=== PATIENT | female | born 1965 | race American Indian/Alaskan Native ===

== ENCOUNTER 2016-12-17 22:20 | Emergency (ER) | payer BC ==
[2016-12-18] MEDS: MOTRIN PO ONE (02:37)
[2016-12-18] MEDS: DUONEB 0.5 MG-3 MG/3 ML SOLN IH ONE (03:08)
--- NOTE | 2016-12-18 03:40 | Emergency Department Report ---
- General Chief Complaint: Upper Respiratory Infection Stated Complaint: CHEST PAIN, COUGH Time Seen by Provider: 12/18/16 02:02 Source: patient Mode of arrival: Ambulatory Limitations: No Limitations - History of Present Illness Initial Comments: 51-year-old female past medical history arthritis and epilepsy presents with complaint of 6 days of sore throat subjective fever chills cough with mild yellowish sputum. 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 Recent exposure to multiple patients with URIs and pneumonia. Patient is awake alert and oriented 3 no signs of respiratory distres sstridor no wheezing on clinical exam. Primarily complaining of cough and body aches and subjective fever chills. Also complains of mild sore throat. Denies smoking MD Complaint: cough, sore throat, rhinorrhea, nasal congestion Onset/Timin -: days(s) Severity: moderate Improves With: OTC cold medicine Context: sick contacts Associated Symptoms: fever, chills, cough - Related Data Home Medications Medication Instructions Recorded Confirmed Last Taken Omeprazole [PriLOSEC] 20 mg PO DAILY 09/22/13 12/21/14 1 Day Ago carBAMazepine [Tegretol] 400 mg PO BID 09/22/13 12/21/14 1 Day Ago valACYclovir [Valtrex] 500 mg PO DAILY 09/22/13 12/21/14 1 Day Ago Previous Rx's Medication Instructions Recorded Last Taken Type Clindamycin [Clindamycin CAP] 300 mg PO Q6H #40 capsule 12/21/14 Unknown Rx HYDROcodone/APAP 5-325 [Felicity 1 each PO Q6HR PRN #12 tablet 12/21/14 Unknown Rx 5/325] Ondansetron [Zofran] 8 mg PO Q8HR PRN #12 tablet 12/21/14 Unknown Rx Amoxicillin [Trimox CAP] 500 mg PO Q8H #30 capsule 04/12/15 Unknown Rx HYDROcodone/APAP 10-325 [Felicity 1 each PO Q4-6H PRN #20 tablet 04/12/15 Unknown Rx 10/325] Amoxicillin/K Clav Tab [Augmentin 1 each PO Q12HR #20 tablet 07/12/15 Unknown Rx 500 MG TAB] Fluticasone [Flonase] 1 spray NS QDAY #1 bottle 07/12/15 Unknown Rx guaiFENesin/CODEINE [Robitussin AC] 10 ml PO QHS PRN #70 ml 07/12/15 Unknown Rx predniSONE [Deltasone] 20 mg PO QDAY #6 tab 07/12/15 Unknown Rx Ibuprofen [Motrin 800 MG tab] 800 mg PO Q8H PRN #30 tablet 03/01/16 Unknown Rx traMADol [Ultram] 50 mg PO Q6HR PRN #20 tablet 03/01/16 Unknown Rx Azithromycin [Zithromax Z-DIMA] 250 mg PO QDAY #6 tablet 12/18/16 Unknown Rx Naproxen [Naproxen TAB] 250 mg PO BID PRN #25 tablet 12/18/16 Unknown Rx Phenylephrine/Dm/Acetaminop/GG 266 ml PO Q4H PRN #1 liquid 12/18/16 Unknown Rx [Mucinex Vrey-Kuw-Epqhihmwtw Lq] Allergies Allergy/AdvReac Type Severity Reaction Status Date / Time sulfamethoxazole AdvReac Itching Verified 07/12/15 17:18 [From Bactrim] trimethoprim [From Bactrim] AdvReac Itching Verified 07/12/15 17:18 ED Review of Systems ROS: Stated complaint: CHEST PAIN, COUGH Other details as noted in HPI Constitutional: denies: chills, fever Eyes: denies: eye pain, eye discharge, vision change ENT: denies: ear pain, throat pain Respiratory: cough. denies: shortness of breath, wheezing Cardiovascular: denies: chest pain, palpitations Endocrine: no symptoms reported Gastrointestinal: denies: abdominal pain, nausea, diarrhea Genitourinary: denies: urgency, dysuria, discharge Musculoskeletal: denies: back pain, joint swelling, arthralgia Skin: denies: rash, lesions Neurological: denies: headache, weakness, paresthesias Psychiatric: denies: anxiety, depression Hematological/Lymphatic: denies: easy bleeding, easy bruising ED Past Medical Hx - Past Medical History Hx Arthritis: Yes Hx Seizures: Yes (epilepsy) Additional medical history: herpes - Surgical History Additional Surgical History: bilateral knee replacement - Social History Smoking Status: Never Smoker Substance Use Type: None - Medications Home Medications: Home Medications Medication Instructions Recorded Confirmed Last Taken Type Omeprazole [PriLOSEC] 20 mg PO DAILY 09/22/13 12/21/14 1 Day Ago History carBAMazepine [Tegretol] 400 mg PO BID 09/22/13 12/21/14 1 Day Ago History valACYclovir [Valtrex] 500 mg PO DAILY 09/22/13 12/21/14 1 Day Ago History Clindamycin [Clindamycin CAP] 300 mg PO Q6H #40 capsule 12/21/14 Unknown Rx HYDROcodone/APAP 5-325 [Felicity 1 each PO Q6HR PRN #12 tablet 12/21/14 Unknown Rx 5/325] Ondansetron [Zofran] 8 mg PO Q8HR PRN #12 tablet 12/21/14 Unknown Rx Amoxicillin [Trimox CAP] 500 mg PO Q8H #30 capsule 04/12/15 Unknown Rx HYDROcodone/APAP 10-325 [Felicity 1 each PO Q4-6H PRN #20 tablet 04/12/15 Unknown Rx 10/325] Amoxicillin/K Clav Tab [Augmentin 1 each PO Q12HR #20 tablet 07/12/15 Unknown Rx 500 MG TAB] Fluticasone [Flonase] 1 spray NS QDAY #1 bottle 07/12/15 Unknown Rx guaiFENesin/CODEINE [Robitussin AC] 10 ml PO QHS PRN #70 ml 07/12/15 Unknown Rx predniSONE [Deltasone] 20 mg PO QDAY #6 tab 07/12/15 Unknown Rx Ibuprofen [Motrin 800 MG tab] 800 mg PO Q8H PRN #30 tablet 03/01/16 Unknown Rx traMADol [Ultram] 50 mg PO Q6HR PRN #20 tablet 03/01/16 Unknown Rx Azithromycin [Zithromax Z-DIMA] 250 mg PO QDAY #6 tablet 12/18/16 Unknown Rx Naproxen [Naproxen TAB] 250 mg PO BID PRN #25 tablet 12/18/16 Unknown Rx Phenylephrine/Dm/Acetaminop/GG 266 ml PO Q4H PRN #1 liquid 12/18/16 Unknown Rx [Mucinex Ilmq-Wpq-Ekpwhnqlev Lq] ED Physical Exam - General Limitations: No Limitations General appearance: alert, in no apparent distress - Head Head exam: Present: atraumatic, normocephalic - Eye Eye exam: Present: normal appearance, PERRL, EOMI - ENT ENT exam: Present: mucous membranes moist - Neck Neck exam: Present: normal inspection, full ROM - Respiratory Respiratory exam: Present: normal lung sounds bilaterally. Absent: respiratory distress - Cardiovascular Cardiovascular Exam: Present: regular rate, normal rhythm. Absent: systolic murmur, diastolic murmur, rubs, gallop - GI/Abdominal GI/Abdominal exam: Present: soft, normal bowel sounds - Extremities Exam Extremities exam: Present: normal inspection - Back Exam Back exam: Present: normal inspection - Neurological Exam Neurological exam: Present: alert, oriented X3 - Psychiatric Psychiatric exam: Present: normal affect, normal mood - Skin Skin exam: Present: warm, dry, intact, normal color. Absent: rash ED Course Vital Signs 12/17/16 12/18/16 12/18/16 22:38 02:37 03:10 Temperature 98.3 F Pulse Rate 90 Pulse Rate [ 88 Posterior Bilateral Throughout] Respiratory 18 20 Rate Respiratory 18 Rate [Posterior Bilateral Throughout] Blood Pressure 139/73 Blood Pressure 139/73 [Left] O2 Sat by Pulse 100 Oximetry 12/18/16 03:16 Temperature Pulse Rate Pulse Rate [ 90 Posterior Bilateral Throughout] Respiratory Rate Respiratory 18 Rate [Posterior Bilateral Throughout] Blood Pressure Blood Pressure [Left] O2 Sat by Pulse Oximetry ED Medical Decision Making - Medical Decision Making A/P: Acute bronchitis 1-Z-Dima, Motrin, Mucinex 2-follow-up with primary care doctor 3-strep and flu swab negative Critical care attestation.: If time is entered above; I have spent that time in minutes in the direct care of this critically ill patient, excluding procedure time. ED Disposition Clinical Impression: Acute bronchitis Qualifiers: Bronchitis organism: unspecified organism Qualified Code(s): J20.9 - Acute bronchitis, unspecified Disposition: DISCHARGED TO HOME OR SELFCARE Is pt being admited?: No Does the pt Need Aspirin: No Condition: Stable Instructions: Acute Bronchitis (ED) Prescriptions: Azithromycin [Zithromax Z-DIMA] 250 mg PO QDAY #6 tablet Naproxen [Naproxen TAB] 250 mg PO BID PRN #25 tablet PRN Reason: Fever Phenylephrine/Dm/Acetaminop/GG [Mucinex Sxpa-Sse-Wvaucsgfet Lq] 266 ml PO Q4H PRN #1 liquid PRN Reason: Cough Referrals: ERINN CONWAY MD [Staff Physician] - 3-5 Days Forms: Work/School Release Form(ED) Time of Disposition: 03:42
[2016-12-18 04:02] VITALS: BP 138/78
== END 2016-12-18 04:03 | disposition home or self-care (01) ==
LOC: ED 22:20
DX: J20.9 Acute bronchitis, unspecified (principal)
CPT/HCPCS: 87116; 87400; 87430; 93005; 93010; 94640; 99283

== ENCOUNTER 2018-05-29 09:40 | Emergency (ER) | payer BC ==
[2018-05-29 10:44] LABS: HCG Qualitative,Urine Negative (Negative)
[2018-05-29] MEDS ORDERED: TORADOL IM ONE (11:19)
--- NOTE | 2018-05-29 11:19 | Emergency Department Report ---
ED Neck Pain/Injury HPI - General Chief Complaint: Neck Pain/Injury Stated Complaint: NECK PAIN Time Seen by Provider: 05/29/18 10:57 Source: patient Mode of arrival: Ambulatory Limitations: No Limitations - History of Present Illness Initial Comments: This is a 52-year-old female hair place that she has neck pain and stiffness that started in her left shoulder and now has pain in her neck and shoulders and upper back. She denies any trauma. Denies any numbness or tingling to extremities. She said it started 3 days ago. Denies any fever or chills. Denies any cough, cold, chest pain, headache, dizziness, nausea or vomiting. Denies any shortness of breath. Pain 8/10 and achy. She says she took over-the -counter medication but it is not working. Pain is worse with movement and better with rest . Denies any injury MD Complaint: neck pain Onset/Timin -: days(s) Place: home Radiation: right shoulder, left shoulder, upper back Severity: severe, constant Severity scale (0 -10): 8 Quality: aching Consistency: constant Improves With: none Worsens With: movement of neck Context: unknown Associated Symptoms: denies: headache, fever, numbness, tingling, weakness, vertigo, difficulty walking, swollen glands, difficulty swallowing, nausea, vomiting Treatments Prior to Arrival: Ibuprofen - Related Data Home Medications Medication Instructions Recorded Confirmed Last Taken Omeprazole [PriLOSEC] 20 mg PO DAILY 09/22/13 12/21/14 1 Day Ago ~12/20/14 carBAMazepine [Tegretol] 400 mg PO BID 09/22/13 12/21/14 1 Day Ago ~12/20/14 valACYclovir [Valtrex] 500 mg PO DAILY 09/22/13 12/21/14 1 Day Ago ~12/20/14 Previous Rx's Medication Instructions Recorded Last Taken Type Clindamycin [Clindamycin CAP] 300 mg PO Q6H #40 capsule 12/21/14 Unknown Rx HYDROcodone/APAP 5-325 [[place] 1 each PO Q6HR PRN #12 tablet 12/21/14 Unknown Rx 5/325] Ondansetron (Nf) [Zofran] 8 mg PO Q8HR PRN #12 tablet 12/21/14 Unknown Rx Amoxicillin [Trimox CAP] 500 mg PO Q8H #30 capsule 04/12/15 Unknown Rx HYDROcodone/APAP 10-325 [[place] 1 each PO Q4-6H PRN #20 tablet 04/12/15 Unknown Rx 10/325] Amoxicillin/K Clav Tab [Augmentin 1 each PO Q12HR #20 tablet 07/12/15 Unknown Rx 500 MG TAB] Fluticasone [Flonase] 1 spray NS QDAY #1 bottle 07/12/15 Unknown Rx guaiFENesin/CODEINE [Robitussin AC] 10 ml PO QHS PRN #70 ml 07/12/15 Unknown Rx predniSONE [Deltasone] 20 mg PO QDAY #6 tab 07/12/15 Unknown Rx Ibuprofen [Motrin 800 MG tab] 800 mg PO Q8H PRN #30 tablet 03/01/16 Unknown Rx traMADol [Ultram] 50 mg PO Q6HR PRN #20 tablet 03/01/16 Unknown Rx Azithromycin [Zithromax Z-DIMA] 250 mg PO QDAY #6 tablet 12/18/16 Unknown Rx Naproxen [Naproxen TAB] 250 mg PO BID PRN #25 tablet 12/18/16 Unknown Rx Phenylephrine/Dm/Acetaminop/GG 266 ml PO Q4H PRN #1 liquid 12/18/16 Unknown Rx [Mucinex Hpcu-Zsc-Hxoqixovhn Lq] Cyclobenzaprine [Flexeril 10mg] 10 mg PO Q12H PRN #14 tablet 05/29/18 Unknown Rx Ibuprofen [Motrin] 600 mg PO Q8H PRN #12 tablet 05/29/18 Unknown Rx Allergies Allergy/AdvReac Type Severity Reaction Status Date / Time sulfamethoxazole AdvReac Itching Verified 07/12/15 17:18 [From Bactrim] trimethoprim [From Bactrim] AdvReac Itching Verified 07/12/15 17:18 ED Review of Systems ROS: Stated complaint: NECK PAIN Other details as noted in HPI Constitutional: denies: chills, fever Eyes: denies: eye pain, eye discharge, vision change ENT: denies: ear pain, throat pain, congestion Respiratory: denies: cough, shortness of breath, SOB with exertion, SOB at rest , wheezing Cardiovascular: denies: chest pain, palpitations, edema, syncope Gastrointestinal: denies: abdominal pain, nausea, diarrhea Genitourinary: denies: urgency, dysuria, discharge Musculoskeletal: arthralgia. denies: back pain, joint swelling Skin: denies: rash, lesions Neurological: denies: headache, weakness, numbness, paresthesias, confusion, abnormal gait, vertigo ED Past Medical Hx - Past Medical History Previous Medical History?: Yes Hx Arthritis: Yes Hx Seizures: Yes (epilepsy) Additional medical history: herpes - Surgical History Past Surgical History?: Yes Additional Surgical History: bilateral knee replacement - Family History Family history: hypertension - Social History Smoking Status: Never Smoker Substance Use Type: None - Medications Home Medications: Home Medications Medication Instructions Recorded Confirmed Last Taken Type Omeprazole [PriLOSEC] 20 mg PO DAILY 09/22/13 12/21/14 1 Day Ago History ~12/20/14 carBAMazepine [Tegretol] 400 mg PO BID 09/22/13 12/21/14 1 Day Ago History ~12/20/14 valACYclovir [Valtrex] 500 mg PO DAILY 09/22/13 12/21/14 1 Day Ago History ~12/20/14 Clindamycin [Clindamycin CAP] 300 mg PO Q6H #40 capsule 12/21/14 Unknown Rx HYDROcodone/APAP 5-325 [[place] 1 each PO Q6HR PRN #12 tablet 12/21/14 Unknown Rx 5/325] Ondansetron (Nf) [Zofran] 8 mg PO Q8HR PRN #12 tablet 12/21/14 Unknown Rx Amoxicillin [Trimox CAP] 500 mg PO Q8H #30 capsule 04/12/15 Unknown Rx HYDROcodone/APAP 10-325 [[place] 1 each PO Q4-6H PRN #20 tablet 04/12/15 Unknown Rx 10/325] Amoxicillin/K Clav Tab [Augmentin 1 each PO Q12HR #20 tablet 07/12/15 Unknown Rx 500 MG TAB] Fluticasone [Flonase] 1 spray NS QDAY #1 bottle 07/12/15 Unknown Rx guaiFENesin/CODEINE [Robitussin AC] 10 ml PO QHS PRN #70 ml 07/12/15 Unknown Rx predniSONE [Deltasone] 20 mg PO QDAY #6 tab 07/12/15 Unknown Rx Ibuprofen [Motrin 800 MG tab] 800 mg PO Q8H PRN #30 tablet 03/01/16 Unknown Rx traMADol [Ultram] 50 mg PO Q6HR PRN #20 tablet 03/01/16 Unknown Rx Azithromycin [Zithromax Z-DIMA] 250 mg PO QDAY #6 tablet 12/18/16 Unknown Rx Naproxen [Naproxen TAB] 250 mg PO BID PRN #25 tablet 12/18/16 Unknown Rx Phenylephrine/Dm/Acetaminop/GG 266 ml PO Q4H PRN #1 liquid 12/18/16 Unknown Rx [Mucinex Wfsn-Jcx-Iziwcouxoy Lq] Cyclobenzaprine [Flexeril 10mg] 10 mg PO Q12H PRN #14 tablet 05/29/18 Unknown Rx Ibuprofen [Motrin] 600 mg PO Q8H PRN #12 tablet 05/29/18 Unknown Rx ED Physical Exam - General Limitations: No Limitations General appearance: alert, in no apparent distress - Head Head exam: Present: atraumatic, normocephalic, normal inspection, other (normal exam) - Eye Eye exam: Present: normal appearance, PERRL, EOMI. Absent: nystagmus, periorbital swelling, periorbital tenderness Pupils: Present: normal accommodation - ENT ENT exam: Present: normal exam, normal orophraynx, mucous membranes moist, TM's normal bilaterally, normal external ear exam - Neck Neck exam: Present: normal inspection, full ROM, other (positive C-spine tenderness but patient does have pain with rotating her head from left to right and both sides neck. Pain is worse with extension of neck.). Absent: tenderness, lymphadenopathy - Respiratory Respiratory exam: Present: normal lung sounds bilaterally. Absent: respiratory distress, chest wall tenderness - Cardiovascular Cardiovascular Exam: Present: regular rate, normal rhythm, normal heart sounds. Absent: systolic murmur, diastolic murmur - Extremities Exam Extremities exam: Present: normal inspection, full ROM, normal capillary refill , other. Absent: tenderness, pedal edema, joint swelling, calf tenderness - Back Exam Back exam: Present: normal inspection, full ROM, other (embolus without any difficulties). Absent: tenderness, CVA tenderness (R), CVA tenderness (L), muscle spasm, paraspinal tenderness, vertebral tenderness, rash noted - Neurological Exam Neurological exam: Present: alert, oriented X3, normal gait, reflexes normal, other (no focal neurological deficit). Absent: motor sensory deficit - Psychiatric Psychiatric exam: Present: normal affect, normal mood - Skin Skin exam: Present: warm, dry, intact, normal color. Absent: rash ED Course Vital Signs 05/29/18 05/29/18 05/29/18 09:58 11:32 13:44 Temperature 97.9 F Pulse Rate 76 71 Respiratory 16 18 18 Rate Blood Pressure 131/71 Blood Pressure 130/70 [Left] O2 Sat by Pulse 100 100 Oximetry - Reevaluation(s) Reevaluation #1: 05/29/18 13:12 Patient given Toradol 60 mg IM for neck pain. Positive relief. ED Medical Decision Making - Radiology Data Radiology results: report reviewed CT scan C-spine dictated by radiologist and report reviewed by myself. Please see detailed report below. Findings [place] [id number] Cat Scan Report Signed Patient: EDWARD GUSMAN MR#: [id number] : 1965 Acct:[id number] Age/Sex: 52 / F ADM Date: 05/29/18 Loc: ED Attending Dr: Ordering Physician: MARTHA OLMSTEAD Date of Service: 05/29/18 Procedure(s): CT cervical spine wo con Accession Number(s): [id number] cc: MARTHA OLMSTEAD FINAL REPORT EXAM: CT CERVICAL SPINE WO CON HISTORY: neck pain and stiffness /cspine tenderness TECHNIQUE: CT examination of the cervical spine without IV contrast PRIORS: None. FINDINGS: Prevertebral soft tissues are without swelling. No evidence of cervical fracture or vertebral compression. Multilevel degenerative changes are present at the vertebral endplates, facet joints, and uncinate joints. Anterolisthesis: None. Retrolisthesis: None. Disc narrowing: C2-3 slight, C4-5 moderate to severe, C5-6 severe, C7-T1 slight to moderate Vertebral endplate, uncinate, and facet degenerative hypertrophic change is associated with osseous neural foraminal stenosis: Right neural foraminal stenosis: C5-6 slight Left neural foraminal stenosis: C5-6 slight IMPRESSION: No acute skeletal pathology in the cervical spine Multilevel degenerative change and disc narrowing. Slight C5-6 neural foraminal stenosis Transcribed By: BAL Dictated By: ORLANDO KAUR MD Electronically Authenticated By: ORLANDO KAUR MD Signed Date/Time: 05/29/181238 DD/ 38 TD/TT: 05/29/181238 - Medical Decision Making This is a 52-year-old female here report that she is having neck pain that started 3 days ago and is radiating to her shoulders and her upper back. Denies any injury. She denies any history of neck injury or arthritis in her neck. Diagnostics: CT scan C-spine reveals degenerative disc disease with some stenosis. Refers to radiology section for details. Urinalysis negative for Assessment/plan Neck pain-patient with degenerative disc disease C-spine with mild stenosis- better with Toradol 60 mg IM 1 and will be sent home on Flexeril and Ultram and referred to orthopedic doctor Cervical radiculopathy to bilateral upper extremity.-Better with Toradol Patient stable throughout ED course. Vital signs stable she is afebrile. Pain is better. I discussed with her her CT scan results and treatment plan and that she needs to follow up with orthopedic doctor for further evaluation and treatment and she voiced understanding patient discharged home in stable condition with prescription for Motrin and Flexeril. - Differential Diagnosis FX, subluxation, degenerative disc disease, strain Critical care attestation.: If time is entered above; I have spent that time in minutes in the direct care of this critically ill patient, excluding procedure time. ED Disposition Clinical Impression: Cervical radiculopathy, Cervical spinal stenosis, Degenerative disc disease, cervical Disposition: DC-01 TO HOME OR SELFCARE Is pt being admited?: No Does the pt Need Aspirin: No Condition: Stable Instructions: Cervical Spinal Stenosis (ED), Cervical Radiculopathy (ED), Degenerative Disc Disease (ED) Additional Instructions: Please follow-up with your primary care doctor and orthopedic doctor in 2-3 days. Flexeril and Motrin but please do not drive or operate heavy machinery while taking Flexeril as this medication causes drowsiness If he experienced increase numbness or tingling to extremity, return to emergency room but keep appointment with orthopedic doctor. Prescriptions: Cyclobenzaprine [Flexeril 10mg] 10 mg PO Q12H PRN #14 tablet PRN Reason: Spasms Ibuprofen [Motrin] 600 mg PO Q8H PRN #12 tablet PRN Reason: Pain Referrals: LEVY SADLER [Other] - 2-3 Days CLEMENCIA WALKER MD [Staff Physician] - 2-3 Days [facility] [Outside] - 2-3 Days Forms: Work/School Release Form(ED)
--- NOTE | 2018-05-29 12:40 | Cat Scan Report ---
FINAL REPORT EXAM: CT CERVICAL SPINE WO CON HISTORY: neck pain and stiffness /cspine tenderness TECHNIQUE: CT examination of the cervical spine without IV contrast PRIORS: None. FINDINGS: Prevertebral soft tissues are without swelling. No evidence of cervical fracture or vertebral compression. Multilevel degenerative changes are present at the vertebral endplates, facet joints, and uncinate joints. Anterolisthesis: None. Retrolisthesis: None. Disc narrowing: C2-3 slight, C4-5 moderate to severe, C5-6 severe, C7-T1 slight to moderate Vertebral endplate, uncinate, and facet degenerative hypertrophic change is associated with osseous neural foraminal stenosis: Right neural foraminal stenosis: C5-6 slight Left neural foraminal stenosis: C5-6 slight IMPRESSION: No acute skeletal pathology in the cervical spine Multilevel degenerative change and disc narrowing. Slight C5-6 neural foraminal stenosis
[2018-05-29 13:44] VITALS: BP 130/70
== END 2018-05-29 13:44 | disposition home or self-care (01) ==
LOC: ED 09:40
DX: M54.12 Radiculopathy, cervical region (principal); M50.30 Other cervical disc degeneration, unspecified cervical region; G40.909 Epilepsy, unspecified, not intractable, without status epilepticus; M19.90 Unspecified osteoarthritis, unspecified site; Z96.653 Presence of artificial knee joint, bilateral; Z88.8 Allergy status to other drugs, medicaments and biological substances; Z88.2 Allergy status to sulfonamides
CPT/HCPCS: 72125; 81025; 96372; 99284; J1885

== ENCOUNTER 2019-07-18 15:51 | Emergency (ER) | payer BC ==
[2019-07-18 16:42] VITALS: BP 135/75
--- NOTE | 2019-07-18 16:47 | Event Note ---
ED Screening Note Date of service: 07/18/19 Time: 16:41 ED Screening Note: 53 y o female presents to Ed cc left thumb pain x 1 week This initial assessment/diagnostic orders/clinical plan/treatment(s) is/are subject to change based on patients health status, clinical progression and re-assessment by fellow clinical providers in the ED. Further treatment and workup at subsequent clinical providers discretion. Patient/guardian urged not to elope from the ED as their condition may be serious if not clinically assessed and managed. Initial orders include:
[2019-07-18] MEDS ORDERED: predniSONE 50 MG TAB PO STA (17:24)
[2019-07-18] MEDS ORDERED: oxyCODONE /ACETAMINOPHEN 5-325MG TAB PO STA (17:24)
--- NOTE | 2019-07-18 18:01 | Emergency Department Report ---
Upper Extremity - HPI Chief Complaint: Extremity Injury, Upper Stated Complaint: (L)WRIST PAIN Time Seen by Provider: 07/18/19 17:24 Upper Extremity: Left Wrist, Left Hand, Left Thumb Occurred When: 4 Days Severity: moderate Symptoms: Yes Pain with Movement, Yes Limited Range of Movement, No Deformity, No Numbness, No Weakness, No Swelling, No Bruising/Ecchymosis, No Laceration or Abrasion ED Review of Systems ROS: Stated complaint: (L)WRIST PAIN Other details as noted in HPI Comment: All other systems reviewed and negative ED Past Medical Hx - Past Medical History Previous Medical History?: Yes Hx Arthritis: Yes Hx Seizures: Yes (epilepsy) Additional medical history: herpes - Surgical History Past Surgical History?: Yes Additional Surgical History: bilateral knee replacement - Social History Smoking Status: Never Smoker Substance Use Type: None - Medications Home Medications: Home Medications Medication Instructions Recorded Confirmed Last Taken Type Omeprazole [PriLOSEC] 20 mg PO DAILY 09/22/13 12/21/14 1 Day Ago History ~12/20/14 carBAMazepine [Tegretol] 400 mg PO BID 09/22/13 12/21/14 1 Day Ago History ~12/20/14 valACYclovir [Valtrex] 500 mg PO DAILY 09/22/13 12/21/14 1 Day Ago History ~12/20/14 Clindamycin [Clindamycin CAP] 300 mg PO Q6H #40 capsule 12/21/14 Unknown Rx HYDROcodone/APAP 5-325 [Grant 1 each PO Q6HR PRN #12 tablet 12/21/14 Unknown Rx 5/325] Ondansetron (Nf) [Zofran] 8 mg PO Q8HR PRN #12 tablet 12/21/14 Unknown Rx Amoxicillin [Trimox CAP] 500 mg PO Q8H #30 capsule 04/12/15 Unknown Rx HYDROcodone/APAP 10-325 [Grant 1 each PO Q4-6H PRN #20 tablet 04/12/15 Unknown Rx 10/325] Amoxicillin/K Clav Tab [Augmentin 1 each PO Q12HR #20 tablet 07/12/15 Unknown Rx 500 MG TAB] Fluticasone [Flonase] 1 spray NS QDAY #1 bottle 07/12/15 Unknown Rx guaiFENesin/CODEINE [Robitussin AC] 10 ml PO QHS PRN #70 ml 07/12/15 Unknown Rx predniSONE [Deltasone] 20 mg PO QDAY #6 tab 07/12/15 Unknown Rx Ibuprofen [Motrin 800 MG tab] 800 mg PO Q8H PRN #30 tablet 03/01/16 Unknown Rx traMADoL [Ultram] 50 mg PO Q6HR PRN #20 tablet 03/01/16 Unknown Rx Azithromycin [Zithromax Z-DIMA] 250 mg PO QDAY #6 tablet 12/18/16 Unknown Rx Naproxen [Naproxen TAB] 250 mg PO BID PRN #25 tablet 12/18/16 Unknown Rx Phenylephrine/Dm/Acetaminop/GG 266 ml PO Q4H PRN #1 liquid 12/18/16 Unknown Rx [Mucinex Famj-Stw-Efvdhclbkm Lq] Cyclobenzaprine [Flexeril 10mg] 10 mg PO Q12H PRN #14 tablet 05/29/18 Unknown Rx Ibuprofen [Motrin] 600 mg PO Q8H PRN #12 tablet 05/29/18 Unknown Rx Ketorolac [Toradol] 10 mg PO Q6H PRN #15 tablet 07/18/19 Unknown Rx traMADoL [Ultram] 50 mg PO Q6HR PRN #20 tablet 07/18/19 Unknown Rx Upper Extremity Exam - Exam General: Vital signs noted. No distress. Alert and acting appropriately. Head and Torso: No HEENT Abnormality, No Neck Tenderness, No Chest/Lungs Ab normality, No Abdominal Tenderness, No Back Tenderness Shoulder Exam: Yes Normal Range of Motion in Shoulder, No Shoulder Tenderness, No Clavicle Tenderness, No Shoulder Deformity, No AC Joint Tenderness Arm Exam: No Arm/Humerus Tenderness, No Arm Deformity Elbow: No Elbow Tenderness, No Normal Range of Motion in Elbow, No Elbow Deformity Forearm: No Forearm Tenderness, No Forearm Deformity, No Pain with Pronation, No Pain with Supination Wrist: Yes Normal ROM in Wrist, No Wrist Tenderness (no fovea sign), No Wrist Deformity, No Snuffbox Tenderness Hand: Yes Hand Tenderness, Yes Digit Tenderness (positive Pipe maneuver), Yes Normal ROM in Digit(s), No Hand Deformity, No Digit(s) Deformity, No Tendon Dysfunction CMS Exam: Yes Normal Distal Pulses, Yes Normal Capillary Refill, Yes Normal Distal Sensation, No Broken Skin ED Course Vital Signs 07/18/19 16:39 Temperature 98.4 F Pulse Rate 86 Respiratory 16 Rate Blood Pressure 135/75 [Left] O2 Sat by Pulse 96 Oximetry Critical care attestation.: If time is entered above; I have spent that time in minutes in the direct care of this critically ill patient, excluding procedure time. ED Disposition Clinical Impression: Tenosynovitis Disposition: DC-01 TO HOME OR SELFCARE Is pt being admited?: No Does the pt Need Aspirin: No Condition: Stable Instructions: De Quervain Disease (ED), Tenosynovitis (ED) Prescriptions: Ketorolac [Toradol] 10 mg PO Q6H PRN #15 tablet PRN Reason: Pain traMADoL [Ultram] 50 mg PO Q6HR PRN #20 tablet PRN Reason: Pain Referrals: CLEMENCIA WALKER MD [Staff Physician] - 3-5 Days
== END 2019-07-18 21:00 | disposition home or self-care (01) ==
LOC: ED 15:51
DX: M65.9 Synovitis and tenosynovitis, unspecified (principal); M19.90 Unspecified osteoarthritis, unspecified site; Z96.653 Presence of artificial knee joint, bilateral; Z79.899 Other long term (current) drug therapy; Z88.2 Allergy status to sulfonamides; Z88.8 Allergy status to other drugs, medicaments and biological substances
CPT/HCPCS: 99282; J7512